=== PATIENT | male | born 1975 | race Caucasian/White ===

== ENCOUNTER 2024-10-28 15:09 | Outpatient (CLI) | payer BC, SELFPAY | END 2024-10-28 15:10 | disposition home or self-care (01) | PROVIDERS: PCP Internal Medicine; Visit Provider Internal Medicine | DX: A69.20 Lyme disease, unspecified (principal); E66.9 Obesity, unspecified | CPT/HCPCS: 86618; 87468; 87484; 87798 ==

== ENCOUNTER 2024-11-06 07:35 | Outpatient (CLI) | payer BC, SELFPAY | END 2024-11-06 07:36 | disposition home or self-care (01) | LOC: NFLDREF 11-10 15:07 | PROVIDERS: PCP Internal Medicine; Referring Provider Internal Medicine; Visit Provider Internal Medicine | DX: Z00.00 Encounter for general adult medical examination without abnormal findings (principal); E78.5 Hyperlipidemia, unspecified; Z83.3 Family history of diabetes mellitus; Z13.1 Encounter for screening for diabetes mellitus | CPT/HCPCS: 80061; 82947 ==